=== PATIENT | female | born 1955 | race Two or more races ===

== ENCOUNTER 2022-12-29 01:19 | Emergency (ER) | payer SELFPAY ==
[2022-12-29] MEDS ORDERED: HYDROcodone-ACET 5/325MG TAB PO ONE (01:45)
[2022-12-29] MEDS ORDERED: ONDANSETRON ODT 4 MG TAB PO ONE (01:45)
[2022-12-29 07:21] VITALS: BP 147/77
[2022-12-29] MEDS ORDERED: SUMA50TA2 PO (07:27)
[2022-12-29] MEDS ORDERED: AMOX875T3 PO (07:27)
== END 2022-12-29 07:23 | disposition home or self-care (01) ==
LOC: ER 01:19
DX: S16.1XXA Strain of muscle, fascia and tendon at neck level, initial encounter (principal); G44.209 Tension-type headache, unspecified, not intractable; H66.92 Otitis media, unspecified, left ear; E11.9 Type 2 diabetes mellitus without complications; I10 Essential (primary) hypertension; X58.XXXA Exposure to other specified factors, initial encounter; Y93.89 Activity, other specified; Y92.89 Other specified places as the place of occurrence of the external cause; Y99.8 Other external cause status
CPT/HCPCS: 70450; 99284; Q0162